=== PATIENT | female | born 1965 | race African-American/Black ===

== ENCOUNTER 2020-09-29 11:48 | Outpatient (CLI) | payer BC | END 2020-09-29 11:49 | disposition home or self-care (01) | LOC: BICMAMMO 11:48 | PROVIDERS: ATTEND Family Medicine | DX: Z12.31 Encounter for screening mammogram for malignant neoplasm of breast (principal); Z91.89 Other specified personal risk factors, not elsewhere classified; Z80.3 Family history of malignant neoplasm of breast | CPT/HCPCS: 77063; 77067 ==